=== PATIENT | male | born 1950 | race Caucasian/White ===

== ENCOUNTER 2016-09-19 16:50 | Emergency (ER) | payer MEDICARE, OTHER ==
[~2016-09-19] VITALS: Ht 177.8 cm; Wt 77.1 kg
[2016-09-19] MEDS ORDERED: ZESTRIL20 MG PO (17:04)
[2016-09-19] MEDS ORDERED: NORVASC10 MG PO (17:05)
[2016-09-19] MEDS ORDERED: LIPITOR40 MG PO (17:06)
[2016-09-19] MEDS ORDERED: TENORMIN50 MG PO (17:06)
== END 2016-09-19 18:22 | disposition home or self-care (01) ==
LOC: ED 16:50
DX: S80.851A Superficial foreign body, right lower leg, initial encounter (principal); I10 Essential (primary) hypertension; E78.5 Hyperlipidemia, unspecified; Z79.899 Other long term (current) drug therapy; X58.XXXA Exposure to other specified factors, initial encounter
CPT/HCPCS: 90471; 90715; 99282

== ENCOUNTER 2020-08-09 06:25 | Observation (INO) | payer MEDICARE, OTHER ==
[~2020-08-09] VITALS: Ht 170.2 cm; Wt 91.2 kg
[~2020-08-09 06:25] MED LIST: LIPITOR40 MG PO; NORVASC10 MG PO; TENORETIC 50 T1 EACH PO; ZESTRIL20 MG PO
--- NOTE | 2020-08-09 12:08 | NUR ---
REPORT RECOEVED FROM NICOLE POLLACK RN.
--- NOTE | 2020-08-09 12:30 | NUR ---
PT ADMITTED TO THE MEDICAL FLOOR AND ARRIVED AT APPROX 1220. ABLE TO STAND AND TRANSFER FROM STRETCHER TO BED. VSS. PT DENIES PAIN, SOB OR NAUSEA. LUNG SOUNDS ARE CLEAR WITH THE EXCEPTION OF DIMINISHED CRACKLES IN RIGHT LOWER LOBE. BOWEL TONES ACTIVE. PT PROVIDED WATER AND ORDERED LUNCH PER REQUEST. 18 G IV IN LAC PATENT, NS INFUSING AT 125 MLS/HR. SMALL SUPERFICIAL ABRASION TO RIGHT SHOULDER FROM GLF AT HOME, PT REPORTEDLY HIT HEAD ON CABINENTS, NO CUTS, ABRASIONS OR CONTUSIONS NOTED TO HEAD. CHILANGO AT BEDSIDE. ADMISSION COMPLETED. NO FURTHER QUESTIONS. CALL LIGHT PROVIDED.
--- NOTE | 2020-08-09 13:00 | NUR ---
IRIDOLOGIST IN TO COMPLETE ECHOCARDIOGRAM.
--- NOTE | 2020-08-09 13:45 | NUR ---
POTASSIUM LEVEL 3.1, PT GIVEN 20 MEQ PO POTASSIUM IN ER. ASKED DR VYAS IF SHE WOULD LIKE PT TO RECEIVE MORE, GIVEN ORDERS FOR 20 MEQ POTASSIUM PO BID.
[2020-08-09] MEDS ORDERED: ZINC30 MG PO (16:45)
[2020-08-09] MEDS ORDERED: MULTI VITAMIN1 EACH PO (16:45)
[2020-08-09] MEDS ORDERED: VITAMIN C500 M1 PO (16:45)
[2020-08-09] MEDS ORDERED: FISH OIL 1,0001 EAC2 PO (16:45)
--- NOTE | 2020-08-09 16:47 | NUR ---
MED REC COMPLETE
--- NOTE | 2020-08-10 00:28 | NUR ---
RESTING, NO DISTRESS, IVF INFUSING
--- NOTE | 2020-08-10 03:00 | NUR ---
tele#[address], no CP, no sob, turns and repositions self in bed. ivf infusing
--- NOTE | 2020-08-10 05:45 | NUR ---
Pt has slept this shift.On room air, IVF infusing, no c/o adverse reaction to abx. Was medicated x1 per temp 101.0. received Tylenol po, effective, afebrile at this time. Tele#[address], readings bewtween sinus memo and Sinus Rhythm. No c/o sob or CP. Toleraing liquids well, no emesis, voiding QS. in room
--- NOTE | 2020-08-10 06:46 | NUR ---
Up to br, walked inroom, tolerated well, on room air. tele#[address] . no sob or cp. ivf infusing, drinking coffee, no c/o pain
--- NOTE | 2020-08-10 07:07 | EKG ---
[facility] [address] [place], [place] [address] Signed Sinus bradycardia Possible Inferior infarct , age undetermined Abnormal ECG No previous ECGs available Confirmed by VANNESA VYAS MD ([id number]) on 08/10/2020 7:06:57 AM Electronically Signed By: VANNESA VYAS MD 08/10/20706 PATIENT NAME: YAYA GARCIA Electrocardiogram DATE OF : 46 PHYSICIAN: VANNESA VYAS MD REPORT #: [id number] REPORT IS CONFIDENTIAL AND NOT TO BE RELEASED WITHOUT AUTHORIZATION
--- NOTE | 2020-08-10 09:00 | NUR ---
INTO PATIENT ROOM, PATIENT SITTING IN CHAIR. CHILANGO AT BEDSIDE. CASE MANAGEMENT ASSESSMENT COMPLETED. PATIENT CURRENTLY LIVES IN A 3 STORY HOME AND ALSO OWNS A CONDO IN [place]. PATIENT IS ESTABLISHED WITH A PCP AND OTHER SPECIALTIES AT [facility]. PATIENT DOES NOT NEED DME FOR MOBILITY AT THIS TIME. PATIENT AND HIS DENIES ANY NEEDS FOR FINANCIAL NEEDS AT THIS TIME. PATIENT DOES NOT FEEL THAT HE REQUIRES ANY FURTHER DISCHARGE PLANNING AT THIS TIME. WILL CONTINUE TO FOLLOW UP ON PATIENT.
--- NOTE | 2020-08-10 11:45 | NUR ---
PT HAS BEEN AMBULATING HALLS FREQUENTLY SINCE BEING SALINE LOCKED THIS AM. TOLERATES WELL AND DENIES FEELING LIGHT-HEADED, DIZZY OR WEAK. INDEPENDENT IN THE ROOM. VOIDING QUANTITY SUFFICIENT AND TAKING FLUIDS WELL. GOOD APPETITE AND DENIES NAUSEA. SITTING UP IN THE CHAIR EATING LUNCH. DENIES FURTHER NEEDS, WOULD LIKE TO GO HOME TODAY.
[2020-08-10] MEDS ORDERED: DOXYCYCLINE HY100 MG PO (14:08)
--- NOTE | 2020-08-10 14:30 | NUR ---
DR VYAS IN TO SEE PT. ORDER FOR DC GIVEN. PT VERBALIZED UNDERSTANDING OF DC INSTRUCTIONS. PT HAS BEEN BETWEEN SINUS JUSTIN AND NSR, HR 50'S-60'S. TELE REMOVED. LFA IV DC'D CATH INTACT. PT W/ F/U W/ PCP AT [facility] IN 7-10 DAYS.
== END 2020-08-10 14:50 | disposition home or self-care (01) ==
LOC: ED 06:25 → MS 06:26
PROVIDERS: ADMIT Internal Medicine; ATTEND Internal Medicine
DX: R55 Syncope and collapse (principal); J84.10 Pulmonary fibrosis, unspecified; I11.9 Hypertensive heart disease without heart failure; E78.5 Hyperlipidemia, unspecified; E87.5 Hyperkalemia; Z20.822 Contact with and (suspected) exposure to COVID-19
CPT/HCPCS: 36415; 70450; 71045; 80048; 80053; 81001; 83735; 83880; 84484; 85025; 93005; 93010; 93306; 96366; 96367; 99285-25; C9803; G0378; J0610; J0696; J7030; U0003